=== PATIENT | male | born 2000 | race Caucasian/White ===

== ENCOUNTER 2020-02-11 07:05 | Emergency (ER) | payer SELFPAY ==
[~2020-02-11] VITALS: Ht 172.7 cm; Wt 83.9 kg
[2020-02-11 07:05] VITALS: BP 153/88
[2020-02-11] MEDS ORDERED: BACITRACIN OINT 500 UNITS/GM PKT TP ONE (07:20)
[2020-02-11 07:26] VITALS: BP 153/88
--- NOTE | 2020-02-11 07:26 | NUR ---
Patient discharged with v/s stable. Written and verbal after care instructions given and explained. Patient verbalized understanding. Ambulatory with in custody. All questions addressed prior to discharge. Advised to follow up with PMD.
--- NOTE | 2020-02-11 07:26 | NUR ---
PATIENT BIB POLICE DEPT. PATIENT EXAMINED BY PATIENT MEDICALLY CLEARED AND RELEASED IN CUSTODY IN STABLE CONDITION. ORIGINAL PRE-BOOK FORM GIVEN TO OFFICER [id number].
== END 2020-02-11 07:26 ==
LOC: MED 07:05
DX: S61.401A Unspecified open wound of right hand, initial encounter (principal); Z02.89 Encounter for other administrative examinations; X58.XXXA Exposure to other specified factors, initial encounter; Y93.89 Activity, other specified; Y92.89 Other specified places as the place of occurrence of the external cause; Y99.8 Other external cause status
CPT/HCPCS: 99283

== ENCOUNTER 2020-07-23 13:49 | Emergency (ER) | payer SELFPAY ==
[~2020-07-23] VITALS: Ht 172.7 cm; Wt 81.6 kg
[2020-07-23 13:50] VITALS: BP 132/79
[2020-07-23 14:21] VITALS: BP 137/75
== END 2020-07-23 14:21 ==
LOC: MED 13:49
DX: F15.10 Other stimulant abuse, uncomplicated (principal); Z02.89 Encounter for other administrative examinations; V89.2XXA Person injured in unspecified motor-vehicle accident, traffic, initial encounter; Y93.89 Activity, other specified; Y92.89 Other specified places as the place of occurrence of the external cause; Y99.8 Other external cause status
CPT/HCPCS: 99283